=== PATIENT | male | born 1985 | race Caucasian/White ===

== ENCOUNTER 2019-05-29 20:30 | Inpatient (IN) | payer OTHER, SELFPAY ==
[2019-05-29 21:19] VITALS: BP 137/83; PULSE 104; RESP 16; TEMP 38.1; O2SAT 98
[2019-05-29 21:41] VITALS: BMI 11.0
--- NOTE | 2019-05-29 22:00 | DI.ECHO.S_ITS ---
[facility] +---------+ : : [address] : : : [place], [place] : : : : [id number] : : : : Phone: [phone]+ Echocardiogram Report + + :Name: LILY MCKINNON Study Date: 05/30/2019 Height: 71 in : :[facility] Weight: 179 lb : : Gender: Male BSA: 2.0 m2 : :: 1985 Age: 33 yrs BP: 125/91 mmHg: :Reason For Study: Endocarditis : :Ordering Physician: Stephanie : :Hospitalist Performed By: LRF : :Referring: BRIEN CARSON : + + Interpretation Summary This is a limited study characterized by incomplete apical images and lack of subcostal images. The echocardiogram could not be completed because patient was combative. Normal sinus rhythm. Normal LV size, wall thickness, wall motion and LV systolic function. EF is 60-65%. Borderline LA enlargement; otherwise normal chamber sizes. No significant valvular abnormalities. No prior study available for comparison. Procedure: The study quality was technically adequate. There is no prior echocardiogram noted for this patient. A two-dimensional transthoracic echocardiogram with color flow and Doppler was performed. Patient combative and refused remainder of exam. The patient was in normal sinus rhythm during the exam. Left Ventricle: The left ventricle is normal in size. Left ventricular wall thickness is at the upper limits of normal. The ejection fraction is estimated to be 60-65%. Right Ventricle: The right ventricle is normal in size and function. Atria: Borderline left atrial enlargement. Borderline right atrial enlargement. Mitral Valve: The mitral valve is normal in structure and function. There is no vegetation seen on the mitral valve. There is trace mitral regurgitation. Aortic Valve: The aortic valve is trileaflet. The aortic valve opens well. There is no aortic valvular vegetation. Tricuspid Valve: The tricuspid valve is normal in structure and function. There is no tricuspid valve vegetation. There is trace tricuspid regurgitation. Pulmonic Valve: The pulmonic valve is normal in structure and function. There is no vegetation on the pulmonic valve. There is trace pulmonic regurgitation. Great Vessels: The aortic root is normal size. The inferior vena cava was not well visualized. Pericardium/ Pleura There is no pericardial effusion. MMode/2D Measurements & Calculations LVIDd: 4.7 cm LVOT diam: 2.2 cm LVIDs: 3.0 cm Ao root diam: 2.9 cm FS: 35.8 % EPSS: 0.83 cm IVSd: 1.0 cm LVPWd: 1.1 cm LV pimentel. diameter/BSA (cm/m^2): 2.3 LV sys. diameter/BSA (cm/m^2): 1.5 LA A4 area: 23.8 cm2 RA long axis: 5.2 cm LA length (vol): 5.7 cm RA area: 19.2 cm2 RA vol: 60.3 ml RA : 30.0 ml/m2 RVD1 (basal): 3.7 cm TAPSE: 3.0 cm Doppler Measurements & Calculations MV E max dipti: 80.1 cm/sec PA V2 max: 119.0 cm/sec MV A max dipti: 64.3 cm/sec PA V2 mean: 78.8 cm/sec MV E/A: 1.2 PA mean P.0 mmHg MV dec time: 0.17 sec PA pr(Accel): 39.1 mmHg Electronically signed by: Tanja Ellsworth M.D. on Reading Physician:05/30/2019 03:31 PM
[2019-05-29 22:01] VITALS: PULSE 88; RESP 16; O2SAT 97
--- NOTE | 2019-05-29 22:13 | DI.CT.S_ITS ---
PROCEDURE: CT CHEST WO CON INDICATIONS: Murmur, septic, Hx IVDA, r/o endocarditis/vegitation TECHNIQUE: Noncontrast 5 mm thick sections acquired from the pulmonary apices to the posterior costophrenic angles. 1 mm lung window, 5 mm thick coronal and sagittal and 7 mm axial MIP reformats were then acquired. For radiation dose reduction, the following was used: automated exposure control, adjustment of mA and/or kV according to patient size. COMPARISON: None. FINDINGS: Image quality: Excellent. Lungs and pleura: There is biapical scarring. Small patchy airspace opacities are seen in posterior aspect of bilateral lower lobes and anterior aspect of right middle lobe near right lung base. No pleural effusions or pneumothorax. Central and peripheral airways are patent and normal in caliber. Mediastinum: Heart size is normal. No pericardial effusion. Mildly prominent mediastinal lymph nodes are seen measures up to 12 mm in size in right paratracheal space and up to 1.4 cm in size in subcarinal space. Thoracic aorta and central pulmonary arteries are normal in size. Esophagus is normal in caliber. No hiatal hernia. Bones and chest wall: No suspicious bony lesions. No vertebral body compression fractures. Mildly prominent bilateral supraclavicular and axillary lymph nodes are seen. No Thyroid gland is within normal limits. Abdomen: Visualized upper abdominal solid organs and bowel loops appear normal in the absence of contrast. IMPRESSION: 1. Finding is suggestive of right middle lobe and bilateral lower lobe infiltrate/atelectasis. 2. Enlarged mediastinal lymph nodes likely represent reactive inflammatory nodes. Similar lymphadenopathy is also seen in bilateral supraclavicular region and axilla. Dictated by: Sajan Stockton M.D. on 05/30/2019 at 9:13 Approved by: Sajan Stockton M.D. on 05/30/2019 at 9:16
--- NOTE | 2019-05-29 22:19 | PM.HP.1 ---
History of Present Illness History of Present Illness Date Patient Seen: 05/29/19 Time Patient Seen: 21:30 Chief complaint: sepsis Patient History Medical History Abnormal liver enzymes (Acute) Anxiety (Acute) Bipolar disorder (Acute) Depression (Acute) Hepatitis C (Acute) History of intravenous drug abuse (Acute) Surgical History No pertinent past surgical history (Acute) Family & Social History Family History (Updated 05/29/19 @ 22:24 by BRADFORD Rubio) Father Heart disease Hypertension Alcohol abuse Mother Alcohol abuse Depression Arthritis Sister Asthma Comment: The patient is stuporous in unable to provide information. Information contained herein is obtained from documents received from [facility], transferring facility. Patient is single, Elvira Vinson is listed as significant other ([phone]). Family information contained above is also derived from transfer documentation. Occupation: Unemployed Smoking: Current every day smoker, 1/2 pack per day for 15 years. Alcohol: No reported alcohol use. Substance use: Tox screen is positive for methamphetamine and opiates, record lists Suboxone as home medication. Advanced directive: The patient is severely altered and unable to provide information at this time is made FULL CODE. No surrogate decision maker is designated, will contact significant other Elvira Vinson, who is listed as significant other in case of untoward events. Meds Home Medications and Allergies Home Medications Medication Instructions Recorded Confirmed Type buprenorphine-naloxone 1 film SUBLINGUAL DAILY 05/29/19 05/29/19 History quetiapine 25 mg PO DAILY 05/29/19 05/29/19 History sertraline [Zoloft] 100 mg PO DAILY 05/29/19 05/29/19 History Allergies Allergy/AdvReac Type Severity Reaction Status Date / Time [place] And Derivatives Allergy Severe Swelling Verified 05/29/19 22:25 of lips Review of Systems Review of Systems ROS Unobtainable: unobtainable due to mental condition Exam Vital Signs (past 8 hours): - 05/29/19 22:01 Pulse Rate 88 Respiratory Rate 16 Pulse Oximetry 97 Oxygen Delivery Method Room Air Oxygen Flow Rate 0 Narrative Exam Narrative: GENERAL APPEARANCE: well developed, disheveled, dirty, adequately nourished, stuporous. HEENT: Multiple scabbed abrasions, no contusions or palpable crepitus, pupils 2 mm, conjunctiva clear, sclera is anicteric, mucous membranes are dry and pink. NECK/THYROID: No step-offs, no JVD, no thyromegaly, trachea midline. LYMPH NODES: no cervical or supraclavicular lymphadenopathy. SKIN: [place], warm and dry, multiple facial and extremity abrasions without erythema or cellulitis. HEART: regular rate and rhythm, S1-S2, 1/6 systolic murmur, no rubs or gallops, brisk capillary refill, puffiness to bilateral hands but not feet. LUNGS: clear to auscultation bilaterally, no coarseness crackles or wheezing, no cough present CHEST: Symmetrical movement, no accessory muscle use, good tidal volume. ABDOMEN: Firm, flat, no apparent pain on on palpation, no organomegaly, active bowel tones. EXTREMITIES: moves all extremities, strength is 5/5 and symmetrical, no deformities or joint effusions. NEUROLOGIC: Patient is stuporous, he is able to say he is in [place], GCS 10 (E-2, V-3, M-5), patient will move all extremities in response to noxious stimulus. PSYCH: Stuporous, will open eyes to tactile and noxious stimulus becoming unresponsive within 5 seconds Objective Labs Result Diagrams: 05/29/19 22:20 05/29/19 22:20 Assessment & Plan Assessment & Plan narrative: This is a 33-year-old male patient who presented to [facility] the morning of 05/29/2019 brought in by police after finding the patient with abnormal behavior and partially nude. The patient was diagnosed altered mental status secondary to methamphetamine use rhabdo, leukocytosis. The patient was being observed in the emergency department after being treated for severe agitation and combativeness with ketamine and Zyprexa when he spiked fever to 40? on a great. No beds were available of the facility therefore requested transfer to [facility]. 1. Sepsis, acute, present on admission, active -patient presentation is confounded by medications received at the sending facility clotting patient's sensorium and inability to obtain subjective information. -patient has an elevated white count [facility] of 13.6, lactic acid 3.0, elevated ESR and 18, temperature of 40? C. -systems involved include cardiovascular with a heart rate of 104 and acute kidney injury with a creatinine of 1.4. Unable to assess sensorium related to medications. -patient received 2 L of IV fluid at the sending facility, continue IV fluid normal saline at 150 cc/hour -urinalysis with reflex to culture and blood cultures are ordered, procalcitonin is ordered, repeat lactic acid is ordered, will obtain chemistries and blood count. -main concern is for bacteremia related to IV drug abuse. -patient received a dose of Zosyn 3.375 g at the sending facility. -empiric coverage with vancomycin 1500 mg IV every 12 hours, pharmacy to dose, ceftriaxone 2 g IV daily. 2. IV drug abuse, possible bacteremia, possible endocarditis, chronic, active -patient tox screen is positive for methamphetamine and opiates with the patient prescribed Suboxone. Altered mental status -no visible needle rodriguez, known history of IVDA. -leukocytosis at 13.6, an elevated ESR at 18. -murmur identified on exam raising concern for vegetative heart valve. -empiric coverage with vancomycin 1500 mg IV every 12 hours, pharmacy to dose, ceftriaxone 2 g IV daily. -will obtain chest CT. -will obtain echocardiogram in the morning. 3. Altered mental status, present on admission, active -patient is somnolent post medication at the sending facility for acute agitation and combativeness. Patient received ketamine and 10 mg of olanzapine IM. -patient with GCS of 10 but can state he is in [place] with sufficient stimulation. -patient is unable to complete a swallow screen and will be NPO until more awake. -aspiration precautions. -patient has a history of bipolar disorder with anxiety and depression. -will continue Zoloft 100 mg daily when able. 4. Acute kidney injury, present on admission, active -patient with an elevated creatinine of 1.4 upon admission and young male with no prior history of kidney disease. -the patient has received 2 L of IV fluid in the emergency department at the sending facility. Will continue IV normal saline at 150 cc. -CT obtained without contrast due to kidney injury. -will monitor renal function, renally dose medications as needed and avoid renal toxic agents. 5. Rhabdomyolysis, acute, present on admission, active -rhabdo nontraumatic in etiology per report though the patient has multiple skin abrasions and scabbing, no identifiable contusions or swelling. -CK at sending facility was 1831. He has since received 2 L of IV fluid. -patient has indwelling García producing clear pale yellow urine. -will recheck CK level. VTE prophylaxis: SCDs and Lovenox Diet: NPO until more awake and passes swallow screening. IVF: Normal saline 150 cc/hour The patient is transferred from [facility] due to lack of beds and admitted to [facility] due to severity of complaints requiring ongoing evaluation and management. Patient is admitted as an inpatient with expected length of stay to be greater than 2 midnights. Scores GCS Julio C coma scale eye opening: To pressure Julio C coma scale verbal response: Words [place] coma scale motor response: Localising [place] coma scale total score: 10
[2019-05-29 22:22] LABS: Bacteria Urine None Seen; RBC Urine None Seen (0-5/HPF); WBC Urine None Seen (0-5/HPF)
[2019-05-29 22:26] LABS: Appearance Urine UA CLEAR; Bilirubin Urine UA NEGATIVE (NEGATIVE); Color Urine UA YELLOW; Glucose Urine UA NEGATIVE (Negative); Ketones Urine UA 2+ (NEGATIVE); Leukocyte Esterase Urine UA NEGATIVE (NEGATIVE); Nitrite Urine UA NEGATIVE (Negative); Occult Blood Urine UA TRACE-INTACT (Negative); Protein Urine UA NEGATIVE (Negative); Urobilinogen Urine UA 0.2 E.U./dL (0.2); pH Urine UA 5.5 (4.5-8.0)
[2019-05-29 22:35] LABS: Culture Indicated Urine Cult Not Indicated; Urine Comments Microscopic Normal
[2019-05-29 22:45] LABS: Add Manual Diff / Slide Review NO; Basophils Absolute Auto 0 /uL (0-100); Basophils Percent Auto 0.1 % (0-2); Eosinophils Absolute Auto 0 /uL (0-450); Eosinophils Percent Auto 0.3 % (2-4); Hematocrit 34.5 % (41-53); Hemoglobin 11.2 g/dL (13.5-17.5); Lymphocytes Absolute Auto 1100 /uL (1100-4500); Lymphocytes Percent Auto 9.8 % (25-40); Mean Corpuscular HGB Conc 32.6 % (30-36); Mean Corpuscular Hemoglobin 25.8 PG (26-34); Mean Corpuscular Volume 79.2 fL (80-100); Monocytes Absolute Auto 900 /uL (0-900); Monocytes Percent Auto 7.6 % (3-14); Neutrophils Absolute Auto 9200 /uL (1500-7000); Neutrophils Percent Auto 82.2 % (50-75); Platelet Count 250 X10^3/uL (150-400); Red Blood Cell Count 4.35 X10^6/uL (4.5-5.9); Red Cell Distribution Width 14.8 % (11.6-14.8); White Blood Cell Count 11.2 X10^3/uL (4.5-11.0)
[2019-05-29 22:56] LABS: Alanine Aminotransferase 55 IU/L (<50); Albumin 3.6 g/dL (3.5-5.0); Albumin Globulin Ratio 1.1 (1.0-2.8); Alkaline Phosphatase 61 U/L (38-126); Aspartate Aminotransferase 75 IU/L (17-59); BUN Creatinine Ratio 16.3 (6-22); Bilirubin Total 0.7 mg/dL (0.2-1.3); Blood Urea Nitrogen 13 mg/dL (9-20); Calcium 8.1 mg/dL (8.4-10.2); Carbon Dioxide 25 mmol/L (22-32); Chloride 104 mmol/L (98-107); Creatine Kinase 939 U/L (55-170); Estimated Glomerular Filt Rate > 60.0 mL/min (>60); Globulin 3.2 g/dL (1.7-4.1); Glucose 143 mg/dL (70-100); HEMOLYSIS < 15 (0-50); Lactate (Lactic Acid) 0.6 mmol/L (0.7-2.1); Magnesium 2.1 mg/dL (1.6-2.3); Potassium 3.9 mmol/L (3.4-5.1); Sodium 136 mmol/L (137-145); Total Protein 6.8 g/dL (6.3-8.2)
[2019-05-29 23:00] VITALS: BP 117/78; PULSE 77; RESP 15; TEMP 36.7; O2SAT 99
[2019-05-29] MEDS: SODIUM CHLORIDE 0.9% 1,000 ML 150 ML IV (23:00)
[2019-05-29 23:11] LABS: Procalcitonin 0.22 ng/mL (<0.5)
[2019-05-30] VITALS (12 sets, daily range): BP systolic 94–151; BP diastolic 62–91; PULSE 70–104; RESP 16–24; TEMP 36.6–38; O2SAT 97–100; BMI 24.5
[2019-05-30] MEDS: CEFTRIAXONE 2 GM/50 ML FROZ.PIGGY IV (01:36)
[2019-05-30] MEDS: VANCOMYCIN 1,250 MG in SODIUM CHLORIDE 0.9% 250 ML 167 ML IV (02:30)
[2019-05-30] MEDS: ACETAMINOPHEN 325 MG TABLET 650 MG PO (02:57)
--- NOTE | 2019-05-30 04:55 | PC.NURSE ---
Pt very somnolent and lethargic at start of shift. Now alert and oriented x2. Responds to questions with slurred words. Pt woke up during the night with the chills and temp of 100.4. Resolved with administering tylenol. Pt resting in bed now without complaints. Skin check done with ROSANA Felix. Scattered scabs and cuts throughout. Pt taking PO without issues. Howard catheter intact and draining clear yellow urine. VO from Kayode FELDER to continue howadr catheter at this time. No complaints of pain.
[2019-05-30 05:38] LABS: Add Manual Diff / Slide Review NO; Basophils Absolute Auto 100 /uL (0-100); Basophils Percent Auto 0.5 % (0-2); Eosinophils Absolute Auto 100 /uL (0-450); Eosinophils Percent Auto 0.6 % (2-4); Hematocrit 34.3 % (41-53); Hemoglobin 11.4 g/dL (13.5-17.5); Lymphocytes Absolute Auto 1100 /uL (1100-4500); Lymphocytes Percent Auto 10.5 % (25-40); Mean Corpuscular HGB Conc 33.2 % (30-36); Mean Corpuscular Hemoglobin 26.4 PG (26-34); Mean Corpuscular Volume 79.4 fL (80-100); Monocytes Absolute Auto 1500 /uL (0-900); Neutrophils Absolute Auto 7400 /uL (1500-7000); Neutrophils Percent Auto 73.4 % (50-75); Platelet Count 218 X10^3/uL (150-400); Red Blood Cell Count 4.32 X10^6/uL (4.5-5.9); Red Cell Distribution Width 14.6 % (11.6-14.8); White Blood Cell Count 10.1 X10^3/uL (4.5-11.0)
[2019-05-30 05:49] LABS: Alanine Aminotransferase 54 IU/L (<50); Albumin 3.5 g/dL (3.5-5.0); Albumin Globulin Ratio 1.1 (1.0-2.8); Alkaline Phosphatase 64 U/L (38-126); Aspartate Aminotransferase 70 IU/L (17-59); BUN Creatinine Ratio 15.7 (6-22); Bilirubin Total 0.6 mg/dL (0.2-1.3); Blood Urea Nitrogen 11 mg/dL (9-20); Calcium 8.2 mg/dL (8.4-10.2); Carbon Dioxide 23 mmol/L (22-32); Chloride 106 mmol/L (98-107); Estimated Glomerular Filt Rate > 60.0 mL/min (>60); Globulin 3.2 g/dL (1.7-4.1); Glucose 97 mg/dL (70-100); HEMOLYSIS < 15 (0-50); Potassium 3.6 mmol/L (3.4-5.1); Sodium 138 mmol/L (137-145); Total Protein 6.7 g/dL (6.3-8.2)
[2019-05-30 06:01] LABS: Erythrocyte Sedimentation Rate 17 MM/HR (0-15)
[2019-05-30] MEDS: SODIUM CHLORIDE 0.9% 1,000 ML 150 ML IV (06:04)
[2019-05-30] MEDS: VANCOMYCIN 1,000 MG/200 ML PIGGYBACK 100 MG IV (08:15)
[2019-05-30] MEDS: ENOXAPARIN 40 MG/0.4 ML SYRINGE SUBCUT (08:16)
--- NOTE | 2019-05-30 10:01 | PM.PN.1 ---
Subjective Subjective Date Patient Seen: 05/30/19 Interval history: This is a 33-year-old male patient who presented to [facility] the morning of 05/29/2019 brought in by police after finding the patient with abnormal behavior and partially nude. The patient was diagnosed altered mental status secondary to methamphetamine use, noted mild rhabdo, leukocytosis. The patient was being observed in the emergency department after being treated for severe agitation and combativeness with ketamine and Zyprexa when he spiked fever to 40?. No beds were available of the facility therefore requested transfer to [facility]. Exam Vital Signs (past 8 hours): - 05/30/19 02:57 05/30/19 03:00 05/30/19 04:54 Temperature 100.4 F H 100.4 F H 97.8 F Pulse Rate Respiratory Rate Blood Pressure Pulse Oximetry 05/30/19 05:30 05/30/19 08:00 Temperature 98.2 F 98.8 F Pulse Rate 81 72 Respiratory Rate 16 16 Blood Pressure 140/76 125/91 H Pulse Oximetry 99 100 Oxygen Delivery Method Room Air Oxygen Flow Rate 0 Narrative Exam Narrative: General: Stuporous male difficult to arouse and not following commands Lungs: Clear to auscultation Heart: Normal S1 and S2, regular rhythm, no murmurs or rubs Abdomen: Soft, tenderness not elicited, no hepatosplenomegaly Extremities: No edema or joint swelling Skin: Multiple excoriations on the facial area Objective Labs Result Diagrams: 05/30/19 05:20 05/30/19 05:20 Labs: Laboratory Results - last 24 hr 05/29/19 05/29/19 05/29/19 22:13 22:20 22:20 WBC 11.2 H RBC 4.35 L Hgb 11.2 L Hct 34.5 L MCV 79.2 L MCH 25.8 L MCHC 32.6 RDW 14.8 Plt Count 250 Neut % (Auto) 82.2 H Lymph % (Auto) 9.8 L [place] % (Auto) 7.6 Eos % (Auto) 0.3 L Baso % (Auto) 0.1 Neut # (Auto) 9200 H Lymph # (Auto) 1100 [place] # (Auto) 900 Eos # (Auto) 0 Baso # (Auto) 0 ESR Sodium 136 L Potassium 3.9 Chloride 104 Carbon Dioxide 25 BUN 13 Creatinine 0.80 Estimated GFR > 60.0 BUN/Creatinine Ratio 16.3 Glucose 143 H Lactate Calcium 8.1 L Magnesium 2.1 Total Bilirubin 0.7 AST 75 H ALT 55 H Alkaline Phosphatase 61 Total Creatine Kinase 939 H Total Protein 6.8 Albumin 3.6 Globulin 3.2 Albumin/Globulin Ratio 1.1 Procalcitonin Urine Color Yellow Urine Appearance Clear Urine pH 5.5 Ur Specific [place] 1.020 Urine Protein Negative Urine Glucose (UA) Negative Urine Ketones 2+ H Urine Occult Blood Trace-intact Urine Nitrate Negative Urine Bilirubin Negative Urine Urobilinogen 0.2 Ur Leukocyte Esterase Negative Urine RBC None seen Urine WBC None seen Urine Bacteria None seen Ur Culture Indicated? Cult not indicated Micro UA Comment Microscopic normal 05/29/19 05/29/19 05/30/19 22:20 22:20 05:20 WBC 10.1 RBC 4.32 L Hgb 11.4 L Hct 34.3 L MCV 79.4 L MCH 26.4 MCHC 33.2 RDW 14.6 Plt Count 218 Neut % (Auto) 73.4 Lymph % (Auto) 10.5 L [place] % (Auto) 15.0 H Eos % (Auto) 0.6 L Baso % (Auto) 0.5 Neut # (Auto) 7400 H Lymph # (Auto) 1100 [place] # (Auto) 1500 H Eos # (Auto) 100 Baso # (Auto) 100 ESR Sodium Potassium Chloride Carbon Dioxide BUN Creatinine Estimated GFR BUN/Creatinine Ratio Glucose Lactate 0.6 L Calcium Magnesium Total Bilirubin AST ALT Alkaline Phosphatase Total Creatine Kinase Total Protein Albumin Globulin Albumin/Globulin Ratio Procalcitonin 0.22 Urine Color Urine Appearance Urine pH Ur Specific [place] Urine Protein Urine Glucose (UA) Urine Ketones Urine Occult Blood Urine Nitrate Urine Bilirubin Urine Urobilinogen Ur Leukocyte Esterase Urine RBC Urine WBC Urine Bacteria Ur Culture Indicated? Micro UA Comment 05/30/19 05/30/19 05:20 05:20 WBC RBC Hgb Hct MCV MCH MCHC RDW Plt Count Neut % (Auto) Lymph % (Auto) [place] % (Auto) Eos % (Auto) Baso % (Auto) Neut # (Auto) Lymph # (Auto) [place] # (Auto) Eos # (Auto) Baso # (Auto) ESR 17 H Sodium 138 Potassium 3.6 Chloride 106 Carbon Dioxide 23 BUN 11 Creatinine 0.70 Estimated GFR > 60.0 BUN/Creatinine Ratio 15.7 Glucose 97 Lactate Calcium 8.2 L Magnesium Total Bilirubin 0.6 AST 70 H ALT 54 H Alkaline Phosphatase 64 Total Creatine Kinase Total Protein 6.7 Albumin 3.5 Globulin 3.2 Albumin/Globulin Ratio 1.1 Procalcitonin Urine Color Urine Appearance Urine pH Ur Specific [place] Urine Protein Urine Glucose (UA) Urine Ketones Urine Occult Blood Urine Nitrate Urine Bilirubin Urine Urobilinogen Ur Leukocyte Esterase Urine RBC Urine WBC Urine Bacteria Ur Culture Indicated? Micro UA Comment Assessment & Plan Assessment & Plan narrative: This is a 33-year-old male patient who presented to [facility] the morning of 05/29/2019 brought in by police after finding the patient with abnormal behavior and partially nude. The patient was diagnosed altered mental status secondary to methamphetamine use, noted mild rhabdo, leukocytosis. The patient was being observed in the emergency department after being treated for severe agitation and combativeness with ketamine and Zyprexa when he spiked fever to 40?. No beds were available of the facility therefore requested transfer to [facility]. 1. Temperature spike, rule out bacteremia, present on admission -patient presentation is confounded by medications received at the sending facility clotting patient's sensorium and inability to obtain subjective information. -patient has an initial elevated white count of 13.6, lactic acid 3.0 at outside facility, most recent WBC 10.1 without left shift, and lactic acid down to 0.6, procalcitonin 0.22 -T-max 40? reported at outside facility, T-max here 100.5 -systems involved include cardiovascular with a heart rate of 104 and acute kidney injury with a creatinine of 1.4. Unable to assess sensorium related to medications. -main concern is for bacteremia and endocarditis related to IV drug abuse -will check on blood cultures from [facility] and repeat set of blood cultures obtained on admission here -obtain transthoracic echocardiogram -continue vancomycin per pharmacy dosing and Zosyn for empiric coverage of bacteremia associated with IVDU -continue IV fluids until patient awake enough to take fluids by mouth -will discontinue antibiotics if blood cultures are negative and echo not suggestive of SBE 2. Pneumonia, likely aspiration, present on admission -CT findings of bilateral lower lobe and right middle lobe infiltrate, fever, leukocytosis consistent with pneumonia likely aspiration associated with drug intoxication -continue antibiotics above until bacteremia ruled out, if no bacteremia then can deescalate antibiotics to Augmentin or doxycycline 3. Altered mental status, present on admission, active -patient is somnolent post medication at the sending facility for acute agitation and combativeness. Patient received ketamine and 10 mg of olanzapine IM. -patient with GCS of 10 but could state he is in [place] with sufficient stimulation. -patient is unable to complete a swallow screen and will be NPO until more awake. -aspiration precautions. -patient has a history of bipolar disorder with anxiety and depression. -will continue Zoloft 100 mg daily and Seroquel 25 mg daily when able. 4. Acute kidney injury, present on admission, active -patient with an elevated creatinine of 1.4 upon admission and young male with no prior history of kidney disease. -the patient has received 2 L of IV fluid in the emergency department at the sending facility. -repeat creatinine 0.7 5. Rhabdomyolysis, acute, present on admission, active -rhabdo nontraumatic in etiology per report though the patient has multiple skin abrasions and scabbing, no identifiable contusions or swelling. -CK at sending facility was 1831. He is receiving IV hydration -patient has indwelling García producing clear pale yellow urine. -repeat CK 939 trending down 6. Polysubstance abuse, active -methamphetamine, history of heroin IVDA last reported use 1 day prior to ER presentation, and patient is also on Suboxone -[employer] consult 7. Chronic hepatitis-C -patient had hep C per outside ER report -noted mild elevated LFTs with normal bilirubin and alk-phos VTE prophylaxis: SCDs and Lovenox Diet: NPO until more awake and passes swallow screening. IVF: Normal saline 150 cc/hour
--- NOTE | 2019-05-30 10:36 | PC.NURSE ---
Patient has been sleeping soundly this morning, only waking briefly, mumbling short answers like yes or no to questions. Moving easily in bed, and turning frequently from side to side. García in place and draining clear yellow urine. IV fluids infusing as ordered. Call light within reach, bed alarm active for safety. Continue to follow.
[2019-05-30] MEDS: VANCOMYCIN 1,000 MG/200 ML PIGGYBACK 200 MG IV (13:57)
--- NOTE | 2019-05-30 14:48 | PC.NURSE ---
Patient was calling from his room for help, found to be sitting on the bed on his knees with the howard catheter hanging between his legs, and he was trying to. States he wanted to try and pee without it, and did not want it in anymore. Howard removed intact, patient tolerated well. Urinal placed within reach and patient instructed to use it. Patient is now awake, alert, and growing restless, reports he knows where he is but does not remember coming here. Assisted to use the phone to try to call his friend. Bed alarm active and call light withinr each.
--- NOTE | 2019-05-30 14:50 | DIET.PN ---
Addendum entered by Damari Keane 05/31/19 16:33: To support scab/wound healing recc ONS Cain bid. Original Note: Dietary Progress Note Assessment: 33y M admitted for sepsis c known acute meth and opioid use, bipolar, hep c referred to nutrition for rhabdomyolysis. Pt not yet assigned diet order per NPO until swallow eval complete. Per RN Mohsen, bedside nurse swallow eval done, pt awake, not having issues c swallowing, asking for meds and juice. It is common for individuals struggling c drug addiction to crave and consume diet high in refined carbohydrates. Per rhabdomyolysis: watch renal labs, 0.9g/kg PRO as pt likely malnourished secondary to drug use, daily weights and fluid monitoring, MVI, 25kcal/kg/d. HT: 180.3cm WT: 79.5kg BMI: 24.4 Labs: TCK 939 H, AST 70 H, ALT 54 H, eGFR >60 MNA: 11 [place]: 17 Nutrition Diagnosis: Interventions: 1. Recc checking K+ and phos levels to assess rhabdo effect on kidneys as eGFR is WNL, will limit phos and K+ in diet if levels high. 2. Recc assigning diet as pt is alert and asking for juice. 3. MVI and nutritious meals per likely nutrition deficits. Diet Order: not assigned r/t altered mental state EER: 1800kcal, 75g PRO (0.9g/kg), 2L fluids Monitoring/Evaluations: diet assignment, POs, associated labs
[2019-05-30] MEDS: LORazepam 2 MG/ML INJ 1 MG IV ×2 (15:07→23:55)
--- NOTE | 2019-05-30 15:39 | PC.NURSE ---
Received call from a nurse at [facility] where patient's previous blood cultures are coming back positive for gram + cocci clusters with DNA gene for methalin Resistance positive. Nurse will fax results to us. Alesia evening shift RN notified and will contact MD as he has not answered this RN's page at this time. Placed in contact isolation.
--- NOTE | 2019-05-30 15:52 | PC.NURSE ---
Spoke with Dr. Narayan, notified him of prelim. positive blood cultures reported from [facility] ER.
[2019-05-30] MEDS: SODIUM CHLORIDE 0.9% 1,000 ML 125 ML IV (15:57)
[2019-05-30 20:22] LABS: Vancomycin Trough 7.9 ug/mL (10-20)
[2019-05-30] MEDS: VANCOMYCIN 1,250 MG in SODIUM CHLORIDE 0.9% 250 ML IV (21:34)
[2019-05-30] MEDS: SODIUM CHLORIDE 0.9% FLUSH 10 ML IV (21:35)
--- NOTE | 2019-05-30 22:08 | PC.NURSE ---
shift overview pt has been mostly sleeping this shift. arouses easily but rarely verbally responds to questions. moving self in bed for comfort and has not been combative or aggressive. voiding to urinal and has been up to bathroom with steady gait. eating and drinking without difficulty. pt's movements are not lethargic. contact precautions instated at 1500 for gram + cocci. pt has been able to voice needs but calls out for things rather than using call light. refusing to wear gown. bed alarm on and pt in view room.
[2019-05-31] MEDS: SODIUM CHLORIDE 0.9% FLUSH 10 ML IV ×3 (01:19→17:25)
[2019-05-31] MEDS: CEFTRIAXONE 2 GM/50 ML FROZ.PIGGY IV (01:19)
[2019-05-31] MEDS: VANCOMYCIN 1,250 MG in SODIUM CHLORIDE 0.9% 250 ML IV ×3 (02:51→17:24)
[2019-05-31 03:00] VITALS: BP 146/82; PULSE 73; RESP 20; TEMP 37.3; O2SAT 99
[2019-05-31] MEDS: SERTRALINE 50 MG TABLET 100 MG PO (09:18)
[2019-05-31] MEDS: BUPRENORPHINE/NALOXONE 8MG/2MG 1 TAB 0.5 TAB SL (09:18)
[2019-05-31] MEDS: ENOXAPARIN 40 MG/0.4 ML SYRINGE SUBCUT (09:19)
--- NOTE | 2019-05-31 11:14 | PM.PN.1 ---
Subjective Subjective Date Patient Seen: 05/31/19 Interval history: This is a 33-year-old male patient who presented to [facility] the morning of 05/29/2019 brought in by police after finding the patient with abnormal behavior and partially nude. The patient was diagnosed altered mental status secondary to methamphetamine use, noted mild rhabdo, leukocytosis. The patient was being observed in the emergency department after being treated for severe agitation and combativeness with ketamine and Zyprexa when he spiked fever to 40?. No beds were available of the facility therefore requested transfer to [facility]. Patient has been afebrile over past 24 hours. He denies cough. He is going through mild withdrawal from heroin and methamphetamine. Blood cultures from [facility] ER growing gram-positive cocci in clusters with PCR positive for MRSA. Exam Vital Signs (past 8 hours): Oxygen Delivery Method Room Air Oxygen Flow Rate 0 Narrative Exam Narrative: GENERAL: Patient looking withdrawn with covers over his head and not keen to interact with staff HEENT: Head normocephalic, atraumatic. Mucous membranes moist. CHEST: Clear to auscultation bilaterally. CARDIAC: Normal S1 and S2, regular rate and rhythm, no murmur, no rub. ABDOMEN: Nondistended, soft, nontender EXTREMITIES: no edema. NEUROLOGICAL: Alert, pleasant, no focal findings SKIN: Numerous excoriations on face as previously noted Objective Labs Result Diagrams: 05/30/19 05:20 05/30/19 05:20 Labs: Laboratory Results - last 24 hr 05/30/19 19:41 Vancomycin Trough 7.9 L Assessment & Plan Assessment & Plan narrative: This is a 33-year-old male patient who presented to [facility] the morning of 05/29/2019 brought in by police after finding the patient with abnormal behavior and partially nude. The patient was diagnosed altered mental status secondary to methamphetamine use, noted mild rhabdo, leukocytosis. The patient was being observed in the emergency department after being treated for severe agitation and combativeness with ketamine and Zyprexa when he spiked fever to 40?. No beds were available of the facility therefore requested transfer to [facility]. 1. MRSA bacteremia, due to IVDU, present on admission -blood cultures from [facility] ER growing gram-positive cocci in clusters with PCR positive for MRSA, final ID and sensitivities pending -patient had an initial elevated white count of 13.6, lactic acid 3.0 at outside facility, most recent WBC 10.1 without left shift, and lactic acid down to 0.6, procalcitonin 0.22 -main concern is for bacteremia seeding his heart valves -transthoracic echocardiogram showed no vegetation -continue vancomycin per pharmacy dosing (and Zosyn added for aspiration pneumonia) -we are attempting to arrange transport to [facility] for CAROLYN to definitively evaluate for endocarditis 2. Pneumonia, likely aspiration, present on admission -patient clinically stable -CT findings of bilateral lower lobe and right middle lobe infiltrate, fever, leukocytosis consistent with pneumonia likely aspiration associated with drug intoxication -continue antibiotics above and consider switching Zosyn to Augmentin to complete 5-7 day course for pneumonia 3. Altered mental status, present on admission, active -patient with GCS of 10 on admission but could state he is in [place] with sufficient stimulation. -patient has a history of bipolar disorder with anxiety and depression. -will continue Zoloft 100 mg daily and Seroquel 25 mg daily 4. Acute kidney injury, present on admission, active -patient with an elevated creatinine of 1.4 upon admission and young male with no prior history of kidney disease. -the patient has received 2 L of IV fluid in the emergency department at the sending facility. -repeat creatinine 0.7 5. Rhabdomyolysis, acute, present on admission, active -rhabdo nontraumatic in etiology per report though the patient has multiple skin abrasions and scabbing, no identifiable contusions or swelling. -CK at sending facility was 1831. He received IV hydration. -DC García catheter -repeat CK 939 trending down 6. Polysubstance abuse, active -methamphetamine, history of heroin IVDA last reported use 1 day prior to ER presentation -resumed Suboxone at patient's routine dose -lorazepam IV/p.o. for restlessness or anxiety -SLEDGER consult 7. Chronic hepatitis-C -patient has hep C per outside ER report -noted mild elevated LFTs with normal bilirubin and alk-phos VTE prophylaxis: SCDs and Lovenox
--- NOTE | 2019-05-31 12:40 | PM.CN ---
History of Present Illness Consult details Date Patient Seen: 05/31/19 Time Patient Seen: 12:41 Chief complaint: sepsis Reason for consult: Consideration for CAROLYN Requesting provider: Gregor Narayan Narrative: Dr. Gregor Narayan was asked for evaluation for consideration of a CAROLYN on this 33-year-old male with a history of bipolar disorder, hepatitis-C, and chronic ongoing substance abuse including IV heroin and tobacco addiction who presented to [facility] on 05/29/2019 by police after being picked up for abnormal behavior and agitation. He was found to be febrile to 40? with elevated white count and creatinine kinase and was felt to be septic. His tox screen was positive for methamphetamine and opioids. He was started on IV antibiotics and transferred to [facility] because of lack of bed availability. Subsequent blood cultures subsequently have become positive for MRSA. A chest CT showed bilateral lower lobe and right middle lobe infiltrates concerning for possible pneumonia. With antibiotic therapy he has defervesced. An echocardiogram obtained yesterday is personally reviewed and shows an EF of 60 to 65% without any obvious vegetation or valvular abnormality but was a somewhat limited study because the patient was uncooperative. The patient concurrently feels improved although is relatively noncommunicative. He denies any previous cardiac or esophageal disorder. He specifically denies any difficulty with swallowing, hematemesis, or hemoptysis. Meds Home Medications and Allergies Home Medications Medication Instructions Recorded Confirmed Type buprenorphine-naloxone 1 film SUBLINGUAL DAILY 05/29/19 05/29/19 History quetiapine 25 mg PO DAILY 05/29/19 05/29/19 History sertraline [Zoloft] 100 mg PO DAILY 05/29/19 05/29/19 History Allergies Allergy/AdvReac Type Severity Reaction Status Date / Time [place] And Derivatives Allergy Severe Swelling Verified 05/29/19 22:25 of lips Review of Systems Review of Systems Narrative: As per the HPI Exam Vital Signs (past 8 hours): Oxygen Delivery Method Room Air Oxygen Flow Rate 0 Narrative Exam Narrative: General: Chronically ill appearing young male in no distress who provides with one-word answers. Skin: He has multiple scabbed sores across his face and scalp. Lungs: Clear to auscultation and percussion. No rales or wheeze. CV: Regular rate and rhythm with respiratory variation consistent with sinus arrhythmia. No appreciable murmurs or gallops. No obvious JVD. Abdomen: Soft, nondistended nontender. Neuro: Grossly nonfocal. Psych: Not very interactive but appropriate Objective Labs Result Diagrams: 05/30/19 05:20 05/30/19 05:20 Labs: Laboratory Results - last 24 hr 05/30/19 19:41 Vancomycin Trough 7.9 L Assessment & Plan Assessment & Plan narrative: IMPRESSION: 1. MRSA bacteremia with IV drug use. While he has no obvious stigmata of endocarditis and he has defervesced, I think it is reasonable to pursue CAROLYN to further evaluate his cardiac valves to exclude endocarditis. I've explained to him the procedure, alternatives, risks, and potential outcomes and he agrees to proceed. Arrangements are being made to have him transferred to [facility] on Monday for CAROLYN with subsequent return to [facility]. He should be kept NPO after midnight Monday evening. 2. IV drug abuse. 3. Apparent hep C positive. RECOMMENDATION: 1. Anticipate transfer to [facility] on Monday for CAROLYN with Anesthesiology and subsequent return to [facility]. 2. Keep NPO after midnight Monday. I spent 50 minutes reviewing the medical record and making arrangements for his CAROLYN.
--- NOTE | 2019-05-31 16:27 | PC.NURSE ---
Addendum entered by Brina Qureshi R.N. 05/31/19 23:43: Hearty appetite. Remains cooperative with staff. Mostly sleeping in bed this shift. Admits to some restlessness/anxiety at shift change. Discussed availability of ativan and this was given. Addendum entered by Brina Qureshi R.N. 05/31/19 17:28: Pharmacy aware of late draw of vanco trough and late administration. Pt currently resting in bed on right side. No signs of distress or discomfort. Encouraged pt with flush of iv to alert staff if experiencing any discomfort with iv medications. Original Note: Awaiting vanco trough to be drawn. Call by this selling underwriter to lab. Hope from lab arrives to draw blood. Waiting on vancomycin until trough result available. Pt denies pain. Offered pt ativan to treat anxiety/restlessness and pt declines. Pt does not exhibit any signs of anxiety or restlessness. Refuses scd's. Denies nausea or headache pain. Positions self in bed. Covered with scabbed abrasions.
--- NOTE | 2019-05-31 16:28 | CM.DANOTE ---
DCP Assessment: EMR Reviewed: Patient is a 33 yr old male who was admitted to IP from [facility] for Sepsis, MRSA, ROSHAN, Rhabdo. Patient has a HX of Hep C, and is an active IV methamphetamine and heroin user. Patient does not have a PCP. CM/RN met with patient at the bedside and explained role. Patient was alert and oriented x2 (patient was not aware of date but was aware of location and reason for being at [facility] Patient was calm and attentive during CM meeting. Patient was shaking. when asked if he was in any pain patient stated No. When asked about patients IV drug usage patient stated he has been using methamphetamines and Heroin for at least 10 years. CM/RN asked when the last time patient used was? Patient stated two days ago he used IV meth and heroin together. CM/RN asked patient if he was interested in getting some help with his drug addiction? Patient stated he doesn't want to quit. Patient stated he has been through rehab in the past and doesn't want to do it again. CM/RN gave patient [facility] information as well as their Crisis line information in case he wants to talk with someone in the future. Patient stated understanding and accepted pamphlet. CM/RN asked patient if their is anyone at home to help him when he d/c patient stated he can call friends or his family if he needs to. Patient stated he currently lives on [address] with family in a single level home. CM/RN asked how he was going to get home at d/c patient didn't answer. Patients Chart states Elvira Vinson is his life partner when asked if she is ok to talk with patient stated it was okay. Patient stated they are no longer together and that they are just friends now but that its still ok to talk with her. Patients nurse let CM/RN know that a woman named Elvira called and said she was his sister and wanted information about how he was doing. CM/RN asked patient if he has a sister named Elvira as well patient stated no it was Elvira Vinson (ex girl friend) calling to get information about him. Patient stated he needs to be out of the hospital by Monday morning so he can make his meeting with his police officer crime prevention. CM/RN explained that patient agreed to get CAROLYN exam at [facility] on Monday and be transferred back here to [facility] after and that if he would like he can call his police officer crime prevention and let them know he is an Inpatient here. Patient then said he can't do that since he is not suppose to be in [facility] at all. Patient is on [place] in [facility] and is not suppose to leave the community health without approval. Patient stated if his police officer crime prevention finds out he will have to go to senior care for two weeks. CM/RN explained the importance of the CAROLYN test for his health. Patient stated that he may just have to leave for his appointment and come back after. CM/RN explained that if he leaves it would most likely be AMA and that if he came back he would have to go through the ED and be re-evaluated for admission again. CM/RN also explained that Sepsis and MRSA are very serious and can be life threatening if not handled appropriately. Patient stated understanding and said he will think about calling his police officer crime prevention. I: [facility] healthy options and Medicaid Plan: D/C home when medically stable. CM department will follow to assist with any D/c planning needs that might arise. OUT PATIENT THERAPIST might want to follow up with patient to determine how patient will transport home at d/c since patient did not respond to CM/RN questions pertaining to his home. Cayla Teixeira RN Discharge Planning/Care Management CM Discharge Assessment Start: 05/31/19 16:25 Freq: Status: Active Protocol: Document 05/31/19 16:25 HS (Rec: 05/31/19 16:28 HS [id number]) Discharge Planning Assessment Assigned Diesel Engine Inspector Cayla Teixeira RN Advance Directives? No History Provided By Patient,Medical Record Has Patient been admitted in last 30 No days? Prior Living Arrangements House Household Members family Type of transporation used prior to Public Transportation admit Comment Patient states he drives but relies on public transportation most of the time Independent with ADL's Yes Is patient alert and oriented? No: Patient was alert and oriented to self and location not to date. Caregiver for Another No Discharge Plan Home Whiteboard Updated in Patient Room with Yes name and ext. # of Diesel Engine Inspector Review Status In Process Next Review Type Continued Stay Review
[2019-05-31 16:37] VITALS: BP 147/91; PULSE 64; RESP 18; TEMP 36.8; O2SAT 98
[2019-05-31 17:06] LABS: Vancomycin Trough 11.8 ug/mL (10-20)
[2019-05-31 21:02] VITALS: BP 149/78; PULSE 79; RESP 16; TEMP 36.9; O2SAT 99
[2019-05-31] MEDS: LORazepam 1 MG TABLET PO (23:04)
[2019-06-01] VITALS (7 sets, daily range): BP systolic 119–147; BP diastolic 68–84; PULSE 57–78; RESP 14–18; TEMP 36.4–37.2; O2SAT 97–99
[2019-06-01] MEDS: CEFTRIAXONE 2 GM/50 ML FROZ.PIGGY IV (01:33)
[2019-06-01] MEDS: SODIUM CHLORIDE 0.9% FLUSH 10 ML IV ×3 (01:33→20:36)
[2019-06-01] MEDS: BUPRENORPHINE/NALOXONE 8MG/2MG 1 TAB 0.5 TAB SL (10:23)
[2019-06-01] MEDS: ENOXAPARIN 40 MG/0.4 ML SYRINGE SUBCUT (10:23)
--- NOTE | 2019-06-01 11:16 | CM.DPC ---
DCP Cont: Per MD, pt continues to be pleasant and cooperative with care and on Suboxone and to have a CAROLYN at [facility] on Monday to determine if pt has endocarditis and either way MD anticipates that pt will likely need at least 4 weeks of IV-Abx. Pt's current and long hx of IV-Drug Use may be a barriers to placement at SNF but DONITA discussed with MD that pt may be able to utilize Swing Bed at [facility] if they have availability and willing to review. Pt's cooperative behavior is a positive for placement. Per previous DCP note though, pt has considered leaving AMA on Monday to make it to his probation appointment so that he is not deemed in violation of his parole. DCP had discussed notifying his surveillance dual rate officer that he was requiring medical attention as inpatient. DONITA called [facility] Supervisor to inquire about swing bed availability and was redirected to Cha Calero who is the Swing Bed coordinator who only works [employer]. DONITA left message for Cha ([phone]) requesting call back on Monday to discuss availability and faxing clinicals to review. Plan: SW to follow closely on Monday to determine if pt is still agreeable for CAROLYN scheduled at [facility] and then if pt will continue following medical advice for surgeon's assistant IV-Abx. If pt remains in the hospital after CAROLYN, then SW to follow up with Cha [facility] Swing Bed coordinator, to determine if they will review for fdc IV-Abx. If not, SNF may need to be attempted if pt agreeable and his hx of IV drug use makes home infusion unsafe. DEDRA Stewart
--- NOTE | 2019-06-01 13:05 | PM.PN.1 ---
Subjective Subjective Date Patient Seen: 06/01/19 Interval history: This is a 33-year-old male patient who presented to [facility] the morning of 05/29/2019 brought in by police after finding the patient with abnormal behavior and partially nude. The patient was diagnosed altered mental status secondary to methamphetamine use, noted mild rhabdo, leukocytosis. The patient was being observed in the emergency department after being treated for severe agitation and combativeness with ketamine and Zyprexa when he spiked fever to 40?. No beds were available of the facility therefore requested transfer to [facility]. Patient has been afebrile for the past 48 hours since started on antibiotic therapy. Blood cultures from [facility] ER growing MRSA sensitive to daptomycin and vancomycin. Exam Vital Signs (past 8 hours): - 06/01/19 10:00 Temperature 98.0 F Pulse Rate 78 Respiratory Rate 15 Blood Pressure 147/84 H Pulse Oximetry 98 Oxygen Delivery Method Room Air Oxygen Flow Rate 0 Objective Labs Result Diagrams: 05/30/19 05:20 05/30/19 05:20 Labs: Laboratory Results - last 24 hr 05/31/19 16:30 Vancomycin Trough 11.8 Assessment & Plan Assessment & Plan narrative: This is a 33-year-old male patient who presented to [facility] the morning of 05/29/2019 brought in by police after finding the patient with abnormal behavior and partially nude. The patient was diagnosed altered mental status secondary to methamphetamine use, noted mild rhabdo, leukocytosis. The patient was being observed in the emergency department after being treated for severe agitation and combativeness with ketamine and Zyprexa when he spiked fever to 40?. No beds were available of the facility therefore requested transfer to [facility]. 1. MRSA bacteremia, due to IVDU, present on admission -blood cultures from [facility] ER growing MRSA sensitive to vancomycin and daptomycin -patient has defervesced since on antibiotics -he had an initial elevated white count of 13.6, lactic acid 3.0 at outside facility, most recent WBC 10.1 without left shift, and lactic acid down to 0.6, procalcitonin 0.22 -main concern is for bacteremia seeding his heart valves -transthoracic echocardiogram showed no vegetation -continue vancomycin per pharmacy dosing (and Zosyn added for aspiration pneumonia) -we have arranged transport to [facility] on Monday for CAROLYN, Dr. Pablito Vazquez will perform procedure and has obtained informed consent from patient -NPO after midnight Monday -need to review with ID optimal length of IV antibiotic therapy once we determine if he has endocarditis 2. Pneumonia, likely aspiration, present on admission -patient clinically stable and does not seem to have a cough -CT findings of bilateral lower lobe and right middle lobe infiltrate, fever, leukocytosis consistent with pneumonia likely aspiration associated with drug intoxication -switched Zosyn to Augmentin 875 mg b.i.d. for aspiration pneumonia, continue vancomycin for MRSA bacteremia 3. Altered mental status, present on admission, resolved -patient not interactive but has been cooperative with care -patient with GCS of 10 on admission -patient has a history of bipolar disorder with anxiety and depression. -will continue Zoloft 100 mg daily and Seroquel 25 mg daily 4. Acute kidney injury, present on admission, active -patient with an elevated creatinine of 1.4 upon admission and young male with no prior history of kidney disease. -the patient has received 2 L of IV fluid in the emergency department at the sending facility. -repeat creatinine 0.7 5. Rhabdomyolysis, acute, present on admission, resolved -rhabdo nontraumatic in etiology per report though the patient has multiple skin abrasions and scabbing, no identifiable contusions or swelling. -CK at sending facility was 1831. He received IV hydration. -DC García catheter -repeat CK 939 trending down 6. Polysubstance abuse, active -methamphetamine, history of heroin IVDA last reported use 1 day prior to ER presentation -resumed Suboxone at patient's routine dose -lorazepam IV/p.o. for restlessness or anxiety -REGRIND MILL OPERATOR consult 7. Chronic hepatitis-C -patient has hep C per outside ER report -noted mild elevated LFTs with normal bilirubin and alk-phos
--- NOTE | 2019-06-01 13:23 | PC.NURSE ---
Pt up and walking in the room looking through cupboards and asked if he could get a nicotine patch and told me that he would like to leave today (AMA) nurse informed.
[2019-06-01] MEDS: BUPRENORPHINE/NALOXONE 8MG/2MG 1 TAB 1.5 TAB SL (13:25)
[2019-06-01] MEDS: NICOTINE 21 MG PATCH TOP (13:43)
[2019-06-01] MEDS: ACETAMINOPHEN 325 MG TABLET 650 MG PO (18:26)
--- NOTE | 2019-06-01 18:41 | PC.NURSE ---
Addendum entered by Brina Qureshi R.N. 06/01/19 22:42: Ativan given for sleep as discussed with pt. Bed alarm set and pt instructed not to attempt out of bed alone d/t sedating effects of ativan. Pt acknowledges understanding. Positions self in bed independently. Addendum entered by Brina Qureshi R.N. 06/01/19 20:49: Awake entire shift. Verbally conversant with staff. Watching television and eating well as staff provides from pantry. Ibuprofen ordered obtained from [facility] as per pt request for c/o all over pain 07/08. Addendum entered by Brina Qureshi R.N. 06/01/19 19:36: Pt's friend, Elvira, takes home pt's clothing worn to hospital to launder. New iv site established left forearm for iv antibiotics. Original Note: Pt's friend, Elvira, arrives @ beginning of shift to visit patient. Contact precautions/isolation observed. Dayshift RN looks through bag going into pt's room and this is cleared. Pt is calm, cooperative with care. IV dc'd as erythema noted at site with difficulty flushing. Pt showered independently. Denies dizziness or lightheadedness when up. Reports tightness left middle finger with difficulty bending this digit. Reports full sensation and this digit is warm to touch without erythema. Infomed pt on several antibiotics to manage several infections. Will continue to monitor. Pt agreeable to staying in hospital for treatment as ordered. Pt reports poor sleep overnight. Informed pt can give ativan to aid with sleep overnight and to treat agitation/anxiety as needed. Nicotine patch in place which pt reports is helping with nicotine cravings. Good appetite. Tylenol given for c/o pain all over. Denies any symptoms r/t drug withdrawal. States only occasional use. Skin with scattered areas of scabbing; clearer than last evening shift 05/31 s/p shower.
[2019-06-01] MEDS: AMOXICILLIN/CLAV 875/125 MG 1 TAB PO (20:36)
[2019-06-01] MEDS: IBUPROFEN 600 MG TABLET PO (20:36)
[2019-06-01] MEDS: LORazepam 1 MG TABLET 2 MG PO (21:20)
[2019-06-02 05:30] VITALS: BP 118/83; PULSE 63; RESP 18; TEMP 36.4; O2SAT 99
--- NOTE | 2019-06-02 08:25 | PM.PN.1 ---
Subjective Subjective Date Patient Seen: 06/02/19 Interval history: Devon Vargas is a 33-year-old male with a past medical history significant for polysubstance abuse including methamphetamines and IV heroin, bipolar disorder, depression and anxiety who was brought to [facility] on the morning of 05/29/2019 by police after finding the patient with abnormal behavior and partially nude. The patient was diagnosed altered mental status secondary to methamphetamine use, noted mild rhabdo, and leukocytosis. The patient was being observed in the emergency department after being treated for severe agitation and combativeness with ketamine and Zyprexa when he spiked fever to 40?. No beds were available of the facility, therefore, requested transfer to [facility]. The patient is resting in bed comfortably. He endorses mild headache and requests ibuprofen. His left 3rd digit he is unable to completely flex and is mildly tender. He denies any other joint pain. He has no skin rash or obvious abscesses. He has no other complaints and denies shortness of breath, chest pain, abdominal pain, nausea, vomiting, fever, chills, dysuria, diarrhea or constipation. He is voiding and eliminating without difficulty. He is up ambulating without assistance. Exam Vital Signs (past 8 hours): - 06/02/19 05:30 Temperature 97.5 F L Pulse Rate 63 Respiratory Rate 18 Blood Pressure 118/83 Pulse Oximetry 99 Oxygen Delivery Method Room Air Oxygen Flow Rate 0 Narrative Exam Narrative: General: Young male sitting in bed and in no acute distress, well-developed, well-nourished, mildly withdrawn and anxious but otherwise appropriately interactive. HEENT: Normocephalic, atraumatic. External ears without defect. Pupils equal, round, and reactive to light. Anicteric sclerae, moist conjunctivae, and no lid lag. Oropharynx free of erythema and cobble stoning with moist mucosa. Neck: Supple with full range of motion. No jugular venous distension. No lymphadenopathy or thyromegaly. Cardiovascular: Regular rate and rhythm without murmurs, rubs, or gallops appreciated. Pulmonary: Clear to auscultation bilaterally without crackles, wheezes, or rhonchi. Normal respiratory effort with no use of accessory muscles. Abdomen: Soft, bowel sounds present, nontender, nondistended. No hepatosplenomegaly or masses appreciated. Extremities: No clubbing, cyanosis, or edema. Left 3rd digit unable to flex with small blister on flexor surface. Skin: Normal temperature, turgor, and texture; no rash, ulcers, or subcutaneous nodules appreciated. Neurological: Cranial nerves grossly intact. Psychiatric: Depressed and mildly anxious mood, flat affect, and mildly withdrawn. Alert and oriented to person, place, and time. Objective Labs Result Diagrams: 05/30/19 05:20 05/30/19 05:20 Assessment & Plan Assessment & Plan narrative: Devon Vargas is a 33-year-old male with a past medical history significant for polysubstance abuse including methamphetamines and IV heroin, bipolar disorder, depression and anxiety who was brought to [facility] on the morning of 05/29/2019 by police after finding the patient with abnormal behavior and partially nude. The patient was diagnosed altered mental status secondary to methamphetamine use, noted mild rhabdo, and leukocytosis. The patient was being observed in the emergency department after being treated for severe agitation and combativeness with ketamine and Zyprexa when he spiked fever to 40?. No beds were available of the facility, therefore, requested transfer to [facility]. 1. Acute MRSA bacteremia secondary to IVDU, present on admission. Active. -Blood cultures from [facility] ER growing MRSA sensitive to vancomycin and daptomycin. -Initial WBC 13.6 and lactic acid 3.0 at at [facility]. WBC and procalcitonin have normalized. Continue to monitor WBC and procalcitonin periodically. -Continue vancomycin with dosing per pharmacist and switch ceftriaxone to Augmentin for aspiration pneumonia as below. Patient has defervesced since on antibiotics. -Transthoracic echocardiogram did not demonstrate any valvular vegetations although poor study quality. -Plan for and have arranged transport to [facility] on Monday06/03/[address] Pablito Vazquez will perform procedure and has obtained informed consent from patient. NPO after midnight tonight. -Plan to review with Infectious Disease the optimal length of IV antibiotic therapy once we determine if he has endocarditis. 2. Pneumonia, likely aspiration, present on admission. Resolving. -Patient clinically stable and does not have cough. -CT findings of bilateral lower lobe and right middle lobe infiltrate, fever, leukocytosis consistent with pneumonia likely aspiration associated with drug intoxication. -Switched ceftriaxone to Augmentin 875 mg twice daily for aspiration pneumonia and will continue through tomorrow to complete 5 days total. Continue vancomycin for MRSA bacteremia. 3. Acute altered mental status, present on admission. Resolved. -Initial GCS of 10 on admission. -Patient withdrawn and not interactive but has been cooperative with his care. He has a history of bipolar disorder with anxiety and depression. -Continue Zoloft 100 mg daily and Seroquel 25 mg daily. 4. Acute kidney injury, not present on admission. Resolved. -Secondary to rhabdomyolysis as below. -Initial creatinine elevated at 1.4 at [facility]. Patient received 2 L IV fluid in [facility] and repeat creatinine on admission was 0.7 with ROSHAN resolved. -Continue to avoid nephrotoxic agents. -Continue to monitor renal function periodically. 5. Acute nontraumatic rhabdomyolysis, present on admission. Resolved. -Patient's rhabdomyolysis was presumed to be nontraumatic in etiology. The patient does have multiple skin abrasions and scabbing but no identifiable contusions or swelling. -Initial CK at sending facility was 1831. Repeat CK 939 and trending down. Continued IV fluid hydration until adequately hydrated then discontinued. 6. Polysubstance abuse, chronic, present on admission. Active. -Patient uses tobacco, methamphetamine and IV heroin with last reported use 1 day prior to admission. -Continue home Suboxone 16 mg/4 mg daily. -Continue lorazepam 1-2 mg every 4 hours as needed for restlessness or anxiety and nicotine patch daily for nicotine withdrawal. -Consulted EDUCATION FINANCE PROCESSOR for CD assessment and we appreciate her time and resources provided. -Counseled the patient extensively on lifestyle modification and recommended cognitive behavioral therapy in addition to regular attendance of narcotics anonymous meetings and sponsorship. 7. Chronic hepatitis-C, present on admission. Stable. -Patient has hepatitis C per outside ER report. Not unexpectedly the patient has mild elevated LFTs with normal bilirubin and alk-phos. -Recommend outpatient referral to hepatology for hepatitis-C treatment per PCP. Code status: Full code DVT prophylaxis: SQ Enoxaparin Disposition: Patient remains hospitalized pending CAROLYN to evaluate for possible endocarditis. If patient does not have endocarditis patient may be discharged on oral antibiotics to complete 10-14 day antibiotic course versus more extensive treatment of 6 weeks IV antibiotics for endocarditis and possible valve clipping.
[2019-06-02] MEDS: ENOXAPARIN 40 MG/0.4 ML SYRINGE SUBCUT (12:04)
[2019-06-02] MEDS: SODIUM CHLORIDE 0.9% FLUSH 10 ML IV ×2 (12:04→20:50)
[2019-06-02] MEDS: NICOTINE 21 MG PATCH TOP (12:05)
[2019-06-02] MEDS: BUPRENORPHINE/NALOXONE 8MG/2MG 1 TAB 2 TAB SL (12:05)
[2019-06-02] MEDS: SERTRALINE 50 MG TABLET 100 MG PO (12:05)
[2019-06-02] MEDS: AMOXICILLIN/CLAV 875/125 MG 1 TAB PO ×2 (12:05→20:50)
[2019-06-02 12:09] VITALS: BP 121/73; PULSE 77; RESP 16; TEMP 37.2; O2SAT 99
[2019-06-02 17:11] VITALS: BP 125/98; PULSE 79; RESP 16; TEMP 36.8; O2SAT 98
[2019-06-02] MEDS: IBUPROFEN 600 MG TABLET PO ×2 (17:12→23:22)
--- NOTE | 2019-06-02 18:20 | PC.NURSE ---
Addendum entered by Brina Qureshi R.N. 06/02/19 22:51: Reviewed MD notes from today's rounds and pt's c/o left middle finger stiffness and pain has been addressed. Plan to make pt npo after midnight in anticipation of tomorrow's CAROLYN. Pt was made aware. Pt expresses anxiety r/t procedure tomorrow. Given ativan to allow for sleep and calm. Tylenol for left shoulder pain. Original Note: Pt sitting up in recliner fully dressed @ beginning of shift. States chronic degenerative joint disease pain in hips as well as left middle finger pain. Given ibuprofen as per request. States left middle finger is stiff and difficult to bend. Edema noted to this finger. Pt admits to full sensation to this digit. S.O., Elvira, is present in pt's room and supportive of pt's care in hospital.
[2019-06-02] MEDS: LORazepam 1 MG TABLET 2 MG PO (21:59)
[2019-06-02] MEDS: ACETAMINOPHEN 325 MG TABLET 650 MG PO (22:00)
--- NOTE | 2019-06-03 02:36 | PC.NURSE ---
2345 Patient is alert and oriented. Breath sounds CTA with RA sat of 98%. HRR. Denies nausea. BT present and abdomen is soft. Voiding; denies dysuria, frequency or urgency. Independent with mobility as is steady on feet and no hx of falling. Scabbed abrasions noted on all extremities. Complains of achy/chronic joint pain with severity of 5/10 and was medicated earlier with Tylenol Plan is to go to [facility] tomorrow for CAROLYN so verbalizes understanding of being NPO after 0000. Refusing SCD's so reminded to ankle wave. Fall risk score is low. On contact isolation due to MRSA bacteremia.
[2019-06-03 04:40] VITALS: BP 127/92; PULSE 82; RESP 17; TEMP 36.7; O2SAT 94
[2019-06-03 05:08] LABS: Add Manual Diff / Slide Review NO; Basophils Absolute Auto 0 /uL (0-100); Basophils Percent Auto 0.6 % (0-2); Eosinophils Absolute Auto 300 /uL (0-450); Eosinophils Percent Auto 4.8 % (2-4); Hematocrit 38.2 % (41-53); Hemoglobin 12.6 g/dL (13.5-17.5); Lymphocytes Absolute Auto 2800 /uL (1100-4500); Lymphocytes Percent Auto 39.5 % (25-40); Mean Corpuscular HGB Conc 33.1 % (30-36); Mean Corpuscular Hemoglobin 26.2 PG (26-34); Mean Corpuscular Volume 79.2 fL (80-100); Monocytes Absolute Auto 700 /uL (0-900); Monocytes Percent Auto 9.4 % (3-14); Neutrophils Absolute Auto 3200 /uL (1500-7000); Neutrophils Percent Auto 45.7 % (50-75); Platelet Count 282 X10^3/uL (150-400); Red Blood Cell Count 4.82 X10^6/uL (4.5-5.9); Red Cell Distribution Width 14.7 % (11.6-14.8)
[2019-06-03 05:16] LABS: Prothrombin Time 11.6 SECONDS (10.1-12.7)
[2019-06-03 05:17] LABS: Alanine Aminotransferase 58 IU/L (<50); Albumin 3.7 g/dL (3.5-5.0); Albumin Globulin Ratio 1.1 (1.0-2.8); Alkaline Phosphatase 59 U/L (38-126); Aspartate Aminotransferase 45 IU/L (17-59); Bilirubin Total 0.2 mg/dL (0.2-1.3); Blood Urea Nitrogen 14 mg/dL (9-20); Calcium 9.1 mg/dL (8.4-10.2); Carbon Dioxide 29 mmol/L (22-32); Chloride 101 mmol/L (98-107); Estimated Glomerular Filt Rate > 60.0 mL/min (>60); Globulin 3.4 g/dL (1.7-4.1); Glucose 106 mg/dL (70-100); HEMOLYSIS < 15 (0-50); Magnesium 1.9 mg/dL (1.6-2.3); Potassium 3.6 mmol/L (3.4-5.1); Sodium 137 mmol/L (137-145); Total Protein 7.1 g/dL (6.3-8.2)
[2019-06-03 05:36] LABS: Procalcitonin < 0.05 ng/mL (<0.5)
[2019-06-03] MEDS: BUPRENORPHINE/NALOXONE 8MG/2MG 1 TAB 2 TAB SL (09:19)
--- NOTE | 2019-06-03 11:17 | PM.PN.1 ---
Subjective Subjective Date Patient Seen: 06/03/19 Time Patient Seen: 11:18 Interval history: Devon Vargas is a 33-year-old male with a past medical history significant for polysubstance abuse including methamphetamines and IV heroin, bipolar disorder, depression and anxiety who was brought to [facility] on the morning of 05/29/2019 by police after finding the patient with abnormal behavior and partially nude. The patient was diagnosed altered mental status secondary to methamphetamine use, noted mild rhabdo, and leukocytosis. The patient was being observed in the emergency department after being treated for severe agitation and combativeness with ketamine and Zyprexa when he spiked fever to 40?. No beds were available of the facility, therefore, requested transfer to [facility]. The The patient is resting in bed comfortably. He denies any complaints this morning. He denies any other joint pain. He has no skin rash or obvious abscesses. He has no other complaints and denies shortness of breath, chest pain, abdominal pain, nausea, vomiting, fever, chills, dysuria, diarrhea or constipation. He is voiding and eliminating without difficulty. He is up ambulating without assistance. He has been afebrile over the past 24 hours and hemodynamically stable. He is going to get a transesophageal echocardiogram this morning at [facility], and then will return. Plan to discuss with ID following CAROLYN results. Exam Vital Signs (past 8 hours): - 06/03/19 04:40 Temperature 98.1 F Pulse Rate 82 Respiratory Rate 17 Blood Pressure 127/92 H Pulse Oximetry 94 Oxygen Delivery Method Room Air Oxygen Flow Rate 0 Narrative Exam Narrative: General: Young male sitting in bed and in no acute distress, well-developed, well-nourished, mildly withdrawn and anxious but otherwise appropriately interactive. HEENT: Normocephalic, atraumatic. External ears without defect. Pupils equal, round, and reactive to light. Anicteric sclerae, moist conjunctivae, and no lid lag. Oropharynx free of erythema and cobble stoning with moist mucosa. Neck: Supple with full range of motion. No jugular venous distension. No lymphadenopathy or thyromegaly. Cardiovascular: Regular rate and rhythm without murmurs, rubs, or gallops appreciated. Pulmonary: Clear to auscultation bilaterally without crackles, wheezes, or rhonchi. Normal respiratory effort with no use of accessory muscles. Abdomen: Soft, bowel sounds present, nontender, nondistended. No hepatosplenomegaly or masses appreciated. Extremities: No clubbing, cyanosis, or edema. Scattered scabs throughout all upper extremities. Skin: Normal temperature, turgor, and texture; no rash, ulcers, or subcutaneous nodules appreciated. Neurological: Cranial nerves grossly intact. Moves extremities equally. Psychiatric: Depressed and mildly anxious mood, flat affect, and mildly withdrawn. Alert and oriented to person, place, and time. Objective Labs Result Diagrams: 06/03/19 04:55 06/03/19 04:50 Labs: Laboratory Results - last 24 hr 06/03/19 06/03/19 06/03/19 04:50 04:50 04:50 WBC RBC Hgb Hct MCV MCH MCHC RDW Plt Count Neut % (Auto) Lymph % (Auto) Garland % (Auto) Eos % (Auto) Baso % (Auto) Neut # (Auto) Lymph # (Auto) Garland # (Auto) Eos # (Auto) Baso # (Auto) PT 11.6 INR 1.0 Sodium 137 Potassium 3.6 Chloride 101 Carbon Dioxide 29 BUN 14 Creatinine 0.70 Estimated GFR > 60.0 BUN/Creatinine Ratio 20.0 Glucose 106 H Calcium 9.1 Magnesium 1.9 Total Bilirubin 0.2 AST 45 ALT 58 H Alkaline Phosphatase 59 Total Protein 7.1 Albumin 3.7 Globulin 3.4 Albumin/Globulin Ratio 1.1 Procalcitonin < 0.05 06/03/19 04:55 WBC 7.0 RBC 4.82 Hgb 12.6 L Hct 38.2 L MCV 79.2 L MCH 26.2 MCHC 33.1 RDW 14.7 Plt Count 282 Neut % (Auto) 45.7 L Lymph % (Auto) 39.5 Garland % (Auto) 9.4 Eos % (Auto) 4.8 H Baso % (Auto) 0.6 Neut # (Auto) 3200 Lymph # (Auto) 2800 Garland # (Auto) 700 Eos # (Auto) 300 Baso # (Auto) 0 PT INR Sodium Potassium Chloride Carbon Dioxide BUN Creatinine Estimated GFR BUN/Creatinine Ratio Glucose Calcium Magnesium Total Bilirubin AST ALT Alkaline Phosphatase Total Protein Albumin Globulin Albumin/Globulin Ratio Procalcitonin Assessment & Plan Assessment & Plan narrative: Devon Vargas is a 33-year-old male with a past medical history significant for polysubstance abuse including methamphetamines and IV heroin, bipolar disorder, depression and anxiety who was brought to [facility] on the morning of 05/29/2019 by police after finding the patient with abnormal behavior and partially nude. The patient was diagnosed altered mental status secondary to methamphetamine use, noted mild rhabdo, and leukocytosis. The patient was being observed in the emergency department after being treated for severe agitation and combativeness with ketamine and Zyprexa when he spiked fever to 40?. No beds were available of the facility, therefore, requested transfer to [facility]. He is pending CAROLYN today for 1. Acute MRSA bacteremia secondary to IVDU, present on admission. Active. -Blood cultures from [facility] ER growing MRSA sensitive to vancomycin and daptomycin. -Initial WBC 13.6 and lactic acid 3.0 at at [facility]. WBC and procalcitonin have normalized. Continue to monitor WBC and procalcitonin periodically. -Continue vancomycin with dosing per pharmacist and switch ceftriaxone to Augmentin for aspiration pneumonia as below. Patient has defervesced since on antibiotics. -Transthoracic echocardiogram did not demonstrate any valvular vegetations although poor study quality. -Plan for and have arranged transport to [facility] on Monday06/03/[address] Pablito Vazquez will perform procedure and has obtained informed consent from patient. NPO after midnight tonight. -Plan to review with Infectious Disease the optimal length of IV antibiotic therapy once we determine if he has endocarditis. 2. Pneumonia, likely aspiration, present on admission. Resolving. -Patient clinically stable and does not have cough. -CT findings of bilateral lower lobe and right middle lobe infiltrate, fever, leukocytosis consistent with pneumonia likely aspiration associated with drug intoxication. -Switched ceftriaxone to Augmentin 875 mg twice daily for aspiration pneumonia and will continue through today to complete 5 days total. Continue vancomycin for MRSA bacteremia. 3. Acute altered mental status, present on admission. Resolved. -Initial GCS of 10 on admission. Now 15. -Patient withdrawn and not interactive but has been cooperative with his care. He has a history of bipolar disorder with anxiety and depression. -Continue Zoloft 100 mg daily and Seroquel 25 mg daily. 4. Acute kidney injury, not present on admission. Resolved. -Secondary to rhabdomyolysis as below. -Initial creatinine elevated at 1.4 at [facility]. Patient received 2 L IV fluid in [facility] and repeat creatinine on admission was 0.7 with ROSHAN resolved. -Continue to avoid nephrotoxic agents. -Continue to monitor renal function periodically. 5. Acute nontraumatic rhabdomyolysis, present on admission. Resolved. -Patient's rhabdomyolysis was presumed to be nontraumatic in etiology. The patient does have multiple skin abrasions and scabbing but no identifiable contusions or swelling. -Initial CK at sending facility was 1831. Repeat CK 939 and trending down. Continued IV fluid hydration until adequately hydrated then discontinued. 6. Polysubstance abuse, chronic, present on admission. Active. -Patient uses tobacco, methamphetamine and IV heroin with last reported use 1 day prior to admission. -Continue home Suboxone 16 mg/4 mg daily. -Continue lorazepam 1-2 mg every 4 hours as needed for restlessness or anxiety and nicotine patch daily for nicotine withdrawal. -Consulted STAIN APPLICATOR for CD assessment and we appreciate her time and resources provided. -Counseled the patient extensively on lifestyle modification and recommended cognitive behavioral therapy in addition to regular attendance of narcotics anonymous meetings and sponsorship. 7. Chronic hepatitis-C, present on admission. Stable. -Patient has hepatitis C per outside ER report. Not unexpectedly the patient has mild elevated LFTs with normal bilirubin and alk-phos. -Recommend outpatient referral to hepatology for hepatitis-C treatment per PCP. Code status: Full code DVT prophylaxis: SQ Enoxaparin Disposition: Patient remains hospitalized pending CAROLYN to evaluate for possible endocarditis. If patient does not have endocarditis patient may be discharged on oral antibiotics to complete 10-14 day antibiotic course versus more extensive treatment of 6 weeks IV antibiotics for endocarditis and possible valve clipping.
--- NOTE | 2019-06-03 11:43 | PC.NURSE ---
Addendum entered by Josee Sanchez R.N. 06/03/19 14:53: Pt returned to floor at 1300; pt left floor X2; left floor at 1330, this RN intercepted patient in hallway downstairs and asked, are you coming back up? Pt replied, yes, I am looking for my sister. @1430, pt left floor, sister called and spoke with this RN and said, I was not meeting him. Pt returned to floor with a visitor and paper bag. @ 1510, this RN, oncoming RN, nurse supervisors, Meghan and Yenifer, spoke with patient regarding plan of care, longer-term abx, and AMA. Pt expresses understanding and says, I'm not going to leave. Original Note: Pt moving independently in room and responding appropriately to questions and instructions; HRR, LS clear, eating, drinking, voiding; scabs to BLUEs, BLLEs, ear lobe and hands noted, no drainage, open to air. SL Suboxone adminstered prior to transfer, all other morning meds held due to NPO; @ 0930 report given to [facility]Herman for transfer to [facility]; @1000 report given to RN at [facility].
--- NOTE | 2019-06-03 13:50 | CM.DPC ---
DCP/continued: Patient went to [facility] today for CAROLYN. Scheduled to return this afternoon. D/C needs unknown at this time. P: Pending DEDRA Garrett
[2019-06-03 14:00] VITALS: BP 135/76; PULSE 85; RESP 18; TEMP 37.2; O2SAT 98
[2019-06-03] MEDS: AMOXICILLIN/CLAV 875/125 MG 1 TAB PO (14:17)
[2019-06-03 15:27] VITALS: BP 120/82; PULSE 73; RESP 20; TEMP 37.2; O2SAT 97
--- NOTE | 2019-06-03 17:19 | PM.DS.1 ---
History of Present Illness History of Present Illness Date Patient Seen: 06/03/19 Time Patient Seen: 17:20 Chief complaint: sepsis Narrative: As per BRADFORD Rubio: This is a 33-year-old male patient who presented to [facility] the morning of 05/29/2019 brought in by police after finding the patient with abnormal behavior and partially nude. The patient was diagnosed altered mental status secondary to methamphetamine use rhabdo, leukocytosis. The patient was being observed in the emergency department after being treated for severe agitation and combativeness with ketamine and Zyprexa when he spiked fever to 40? on a great. No beds were available of the facility therefore requested transfer to [facility]. Discharge Providers Provider Date of admission: 05/29/19 20:30 Discharge Date: 06/03/19 Consults: 05/29/19 21:46 Consult to Dietitian, Adult Routine Comment: Reason For Exam: Rhabdomyolysis 05/29/19 21:47 Consult to Discharge Planning Routine Comment: 05/30/19 09:57 Consult to [employer] - Production Finisher Routine Comment: 05/31/19 15:46 Consult to Physician Routine Comment: Consulting Provider: Eddie Vazquez Reason for consultation: r/o SBE Has provider been notified: Yes Discharge provider: Javier Linton DO Summary Hospital Course Discharge Diagnosis: 1. Acute MRSA bacteremia secondary to IVDU, present on admission. Active. 2. Pneumonia, likely aspiration, present on admission. Resolving. 3. Acute altered mental status, present on admission. Resolved. 4. Acute kidney injury, not present on admission. Resolved. 5. Acute nontraumatic rhabdomyolysis, present on admission. Resolved. 6. Polysubstance abuse, chronic, present on admission. Active. 7. Chronic hepatitis-C, present on admission. Stable. Hospital Course: Devon Vargas is a 33-year-old male with a past medical history significant for polysubstance abuse including methamphetamines and IV heroin, bipolar disorder, depression and anxiety who was brought to [facility] on the morning of 05/29/2019 by police after finding the patient with abnormal behavior and partially nude. The patient was diagnosed altered mental status secondary to methamphetamine use, noted mild rhabdo, and leukocytosis. The patient was being observed in the emergency department after being treated for severe agitation and combativeness with ketamine and Zyprexa when he spiked fever to 40?. No beds were available of the facility, therefore, requested transfer to [facility]. TTE and subsequent CAROLYN were negative for endocarditis. Attempted to consult infectious disease after CAROLYN today however they were not in there office and were not picking up their cellphone. At 5:00 p.m., patient stated desire to leave against medical advice. I explained that ideally he would be set up for outpatient antibiotic therapy given IDSA guidelines possibly tomorrow, versus discussion with in infectious disease provider regarding outpatient antibiotic therapy. The patient does not have a primary care provider and his social situation is extremely complex. Given history of IV drug abuse, at this time I believe it is safest to attempt outpatient oral antibiotic therapy for this uncomplicated MRSA bacteremia in this patient as there are studies that showed that uncomplicated bacteremia treated with oral outpatient antibiotic therapy is non-inferior to IV in selected patients (Sequential Intravenous to Oral Treatment of MRSA Bacteremia, [place] [facility], 06/12/2018) . He will complete 9 additional days of linezolid as an outpatient, and 3 additional days Augmentin for possible aspiration pneumonia. Patient was counseled on risks of leaving including recurrence of bacteremia, fevers, chills, serious illness, and possibly . He understood these risks and decided to leave against medical advice. 1. Acute MRSA bacteremia secondary to IVDU, present on admission. Active. -Blood cultures from [facility] ER growing MRSA sensitive to vancomycin and daptomycin. -Initial WBC 13.6 and lactic acid 3.0 at at [facility]. WBC and procalcitonin have normalized. -patient defervesced on vancomycin and Augmentin therapy. He will complete a total 14 day course of antibiotics with 9 additional days of linezolid oral therapy as an outpatient as discussed above. -Transthoracic echocardiogram did not demonstrate any valvular vegetations although poor study quality. -patient was transferred for CAROLYN which did not show evidence of endocarditis. He returned afterwards when he expressed desire to leave against medical advice. -Plannd to review with Infectious Disease the optimal length of IV antibiotic therapy, however none were available before patient decided to leave against medical advice. Medical decision making as noted above. -he needs to establish care with a primary care provider. I have ordered him for outpatient lab testing to be done next week while taking linezolid. 2. Pneumonia, likely aspiration, present on admission. Resolving. -Patient clinically stable and does not have cough. -CT findings of bilateral lower lobe and right middle lobe infiltrate, fever, leukocytosis consistent with pneumonia likely aspiration associated with drug intoxication. -Switched ceftriaxone to Augmentin 875 mg twice daily for aspiration pneumonia and will continue through 06/06. Continue linezolid MRSA bacteremia as noted above 3. Acute altered mental status, present on admission. Resolved. -Initial GCS of 10 on admission. Now 15. -Patient withdrawn and not interactive but has been cooperative with his care. He has a history of bipolar disorder with anxiety and depression. -Continue Zoloft 100 mg daily and Seroquel 25 mg daily. 4. Acute kidney injury, not present on admission. Resolved. -Secondary to rhabdomyolysis as below. -Initial creatinine elevated at 1.4 at [facility]. Patient received 2 L IV fluid in [facility] and repeat creatinine on admission was 0.7 with ROSHAN resolved. 5. Acute nontraumatic rhabdomyolysis, present on admission. Resolved. -Patient's rhabdomyolysis was presumed to be nontraumatic in etiology. The patient does have multiple skin abrasions and scabbing but no identifiable contusions or swelling. -Initial CK at sending facility was 1831. Repeat CK 939 and trending down. Continued IV fluid hydration until adequately hydrated then discontinued. 6. Polysubstance abuse, chronic, present on admission. Active. -Patient uses tobacco, methamphetamine and IV heroin with last reported use 1 day prior to admission. -Continue home Suboxone 16 mg/4 mg daily. -Continue lorazepam 1-2 mg every 4 hours as needed for restlessness or anxiety and nicotine patch daily for nicotine withdrawal. -Consulted [employer] for CD assessment and we appreciate her time and resources provided. -Counseled the patient extensively on lifestyle modification and recommended cognitive behavioral therapy in addition to regular attendance of narcotics anonymous meetings and sponsorship. 7. Chronic hepatitis-C, present on admission. Stable. -Patient has hepatitis C per outside ER report. Not unexpectedly the patient has mild elevated LFTs with normal bilirubin and alk-phos. -Recommend outpatient referral to hepatology for hepatitis-C treatment per PCP. Disposition: Patient left against medical advice. He was provided with outpatient oral antibiotic treatment for MRSA bacteremia. Status at Discharge Cognitive/behavioral status at discharge: oriented Functional status at discharge: independent ambulation Overall status at discharge: patient is back to baseline Time Spent with Patient Time spent: Greater than 30 minutes Exam Vital Signs (past 8 hours): - 06/03/19 14:00 06/03/19 15:27 Temperature 99.0 F 98.9 F Pulse Rate 85 73 Respiratory Rate 18 20 Blood Pressure 135/76 120/82 Pulse Oximetry 98 97 Oxygen Delivery Method Room Air Oxygen Flow Rate 0 Narrative Exam Narrative: General: Young male sitting in bed and in no acute distress, well-developed, well-nourished, mildly withdrawn and anxious but otherwise appropriately interactive. HEENT: Normocephalic, atraumatic. External ears without defect. Pupils equal, round, and reactive to light. Anicteric sclerae, moist conjunctivae, and no lid lag. Oropharynx free of erythema and cobble stoning with moist mucosa. Neck: Supple with full range of motion. No jugular venous distension. No lymphadenopathy or thyromegaly. Cardiovascular: Regular rate and rhythm without murmurs, rubs, or gallops appreciated. Pulmonary: Clear to auscultation bilaterally without crackles, wheezes, or rhonchi. Normal respiratory effort with no use of accessory muscles. Abdomen: Soft, bowel sounds present, nontender, nondistended. No hepatosplenomegaly or masses appreciated. Extremities: No clubbing, cyanosis, or edema. Scattered scabs throughout all upper extremities. Skin: Normal temperature, turgor, and texture; no rash, ulcers, or subcutaneous nodules appreciated. Neurological: Cranial nerves grossly intact. Moves extremities equally. Psychiatric: Depressed and mildly anxious mood, flat affect, and mildly withdrawn. Alert and oriented to person, place, and time. Objective Labs Result Diagrams: 06/03/19 04:55 06/03/19 04:50 Labs: Laboratory Results - last 24 hr 06/03/19 06/03/19 06/03/19 04:50 04:50 04:50 WBC RBC Hgb Hct MCV MCH MCHC RDW Plt Count Neut % (Auto) Lymph % (Auto) [place] % (Auto) Eos % (Auto) Baso % (Auto) Neut # (Auto) Lymph # (Auto) [place] # (Auto) Eos # (Auto) Baso # (Auto) PT 11.6 INR 1.0 Sodium 137 Potassium 3.6 Chloride 101 Carbon Dioxide 29 BUN 14 Creatinine 0.70 Estimated GFR > 60.0 BUN/Creatinine Ratio 20.0 Glucose 106 H Calcium 9.1 Magnesium 1.9 Total Bilirubin 0.2 AST 45 ALT 58 H Alkaline Phosphatase 59 Total Protein 7.1 Albumin 3.7 Globulin 3.4 Albumin/Globulin Ratio 1.1 Procalcitonin < 0.05 06/03/19 04:55 WBC 7.0 RBC 4.82 Hgb 12.6 L Hct 38.2 L MCV 79.2 L MCH 26.2 MCHC 33.1 RDW 14.7 Plt Count 282 Neut % (Auto) 45.7 L Lymph % (Auto) 39.5 [place] % (Auto) 9.4 Eos % (Auto) 4.8 H Baso % (Auto) 0.6 Neut # (Auto) 3200 Lymph # (Auto) 2800 [place] # (Auto) 700 Eos # (Auto) 300 Baso # (Auto) 0 PT INR Sodium Potassium Chloride Carbon Dioxide BUN Creatinine Estimated GFR BUN/Creatinine Ratio Glucose Calcium Magnesium Total Bilirubin AST ALT Alkaline Phosphatase Total Protein Albumin Globulin Albumin/Globulin Ratio Procalcitonin Discharge Plan Discharge Plan Patient Disposition: Left Against Medical Advice Discharge comment: You were admitted to the hospital with a drug-resistant bacteria that was in your blood. You improved with IV antibiotics. Ideally you should have 2 weeks of antibiotics, however you wanted to leave and given social circumstances we will attempt to treat you with an oral antibiotic. You should complete a total of 2 weeks of antibiotics so you will be given 9 additional days to complete at home. If you again developed fevers or chills please return for medical care. I have also put in an order for an outpatient lab draw as monitoring needs to be done. Please get this lab draw done and I would like you to also establish with a primary care provider as soon as possible. Discharge orders & Medications Discharge Orders: Discharge (Order); Ordered 06/03/19 Ordered By: Javier Linton Prescriptions: New amoxicillin-pot clavulanate 875-125 mg tablet 1 tab PO BID 3 Days Qty: 6 RF: 0 linezolid 600 mg tablet 600 mg PO BID 9 Days Qty: 18 RF: 0 Continued quetiapine 25 mg Tablet 25 mg PO DAILY RF: 0 sertraline [Zoloft] 100 mg Tablet 100 mg PO DAILY RF: 0 buprenorphine-naloxone 8-2 mg Film 2 film SUBLINGUAL DAILY RF: 0 Other Ambulatory Orders: Complete Blood Count AUTO DIFF (Routine) Timeframe: 1 Week Facility: [facility] - Location: Laboratory Ordered By: Javier Linton Creatine Kinase (Routine) Timeframe: 1 Week Facility: [facility] - Location: Laboratory Ordered By: Javier Linton Comprehensive Metabolic Panel (Routine) Timeframe: 1 Week Facility: [facility] - Location: Laboratory Ordered By: Javier Linton Discharge Health Status Health Concerns: MRSA bacteremia Diet/Activity/Treatments Diet: Diet as Tolerated Activity: As tolerated
--- NOTE | 2019-06-03 17:39 | PC.NURSE ---
Discharge Note Patient discharged AMA per provider. VSS, no complaints or discomforts. Provider in to see patient and AMA paperwork signed per patient, provider and this RN as witness. Discharge paperwork given to patient along with instructions for electronic scripts. No questions or concerns. PIV discontinued without complications. Paperwork and belonging given to patient. Patient left facility with friend via personal vehicle.
== END 2019-06-03 17:30 | disposition left against medical advice (07) | DRG 871 ==
PROVIDERS: Internal Medicine; Admitting Provider Nurse Practitioner Adult Health; Visit Provider Nurse Practitioner Adult Health
DX: R78.81 Bacteremia (principal); J69.0 Pneumonitis due to inhalation of food and vomit; R40.2113 Coma scale, eyes open, never, at hospital admission; R40.2223 Coma scale, best verbal response, incomprehensible words, at hospital admission; F15.121 Other stimulant abuse with intoxication delirium; F11.121 Opioid abuse with intoxication delirium; N17.9 Acute kidney failure, unspecified; M62.82 Rhabdomyolysis; R40.2353 Coma scale, best motor response, localizes pain, at hospital admission; F31.9 Bipolar disorder, unspecified; B18.2 Chronic viral hepatitis C; F17.210 Nicotine dependence, cigarettes, uncomplicated; B95.62 Methicillin resistant Staphylococcus aureus infection as the cause of diseases classified elsewhere
CPT/HCPCS: 36415; 71250; 80053; 80202; 81001; 82550; 83605; 83735; 84145; 85025; 85610; 85651; 87040; 93306; 94760; 94762; 99406; J0696; J0878; J1650; J2060